=== PATIENT | female | born 1990 | race Caucasian/White ===

== ENCOUNTER 2017-06-05 07:10 | Emergency (ER) | payer OTHER ==
[~2017-06-05] VITALS: Ht 157.5 cm; Wt 62.6 kg
[~2017-06-05 07:10] MED LIST: DCL/500 PO
[2017-06-05 07:13] VITALS: TEMP 36.5; Ht 157.5 cm; Wt 62.6 kg
[2017-06-05] MEDS ORDERED: CEFTRIAXONE SOD INJ 1 GM ADDVIAL IV STA (07:38)
[2017-06-05 08:04] LABS: BASO % 0.2 %; BASO ABS # 0.02 K/uL (0-0.2); COMPLETE YES; EOS % 2.4 %; HEMATOCRIT 37.5 % (37-47); IG% 0.1 %; LYMPH % 10.1 %; LYMPH ABS # 0.86 K/uL (1.2-3.4); MEAN CORPUSCULAR HEMOGLOBIN 30.3 pg (25-34); MEAN CORPUSCULAR HGB CONC 33.3 g/dl (32-36); MEAN PLATELET VOLUME 8.1 fL (7.4-10.4); MONO % 7.4 %; NEUT % 79.8 %; PLATELET COUNT 256 K/uL (130-400); RED BLOOD COUNT 4.12 M/uL (4.2-5.4)
[2017-06-05 08:11] LABS: BUN/CREATININE RATIO 15.1 (10-20); CREATININE 0.7 mg/dl (0.60-1.20); POTASSIUM 3.9 mmol/L (3.5-5.1)
[2017-06-05 09:05] VITALS: BP 106/78; PULSE 109; O2SAT 100
--- NOTE | 2017-06-05 09:05 | EMERGENCY ROOM VISIT NOTE ---
History First contact with patient: 07:18 Chief Complaint: FEVER Stated Complaint: HIGH FEVER AFTER MASTITIS DIAGNOSIS History of Present Illness The patient is a 27 year old female who presents to the Emergency Room with complaints of left mastitis, worsening pain, swelling and fever. The patient reports that she developed breast discomfort yesterday morning. She was seen yesterday at her [facility] office and provided a prescription for dicloxacillin 500 mg 4 times a day. The patient has taken 3 doses, and has not noticed any difference in the appearance or redness of her inferior breast region. The patient checked a forehead temperature this morning which was 103F. She has not taken any ibuprofen or Tylenol for her fever or pain, and rates her discomfort a 2 out of 10. The patient reports that she did have a previous history of mastitis in March. Review of Systems HEENT: Denies dizziness, visual problems, hearing loss, tinnitus. Denies difficulty swallowing or oral lesions. PULMONARY: Denies cough, shortness of breath, sputum production or hemoptysis. CARDIOVASCULAR: Denies chest pain, palpitations, dyspnea on exertion, orthopnea or peripheral edema. GASTROINTESTINAL: Denies diarrhea, constipation, nausea, vomiting, or abdominal pain. GENITOURINARY: Denies dysuria, frequency, urgency or nocturia. NEUROLOGIC: Denies history of epilepsy, CVA, TIA or chronic headaches. MUSCULOSKELETAL: Denies history of joint tenderness/swelling. SKIN: Denies rashes or lesions. PSYCHIATRIC: Denies history of depression or mental illness. ENDOCRINE: Denies history of diabetes or thyroid disorders. Past Medical/Surgical History Medical Problems: (1) Migraines Surgical Problems: (1) History of wisdom tooth extraction Family History FH: hypertension Social History Smoking Status: Never Smoker Alcohol Use: occasionally Marital Status: Housing Status: lives with family Occupation Status: employed Current/Historical Medications Scheduled Dicloxacillin Sodium (Dynapen), 1 CAP PO QID Physical Exam Vital Signs Date Time Temp Pulse Resp B/P (MAP) Pulse Ox O2 Delivery O2 Flow Rate FiO2 06/05/17 07:13 36.5 140 18 122/80 96 Room Air Physical Exam CONSTITUTIONAL: Healthy and well nourished. Alert and oriented X 3 with positive affect. Patient does not appear acutely ill or toxic. HEENT: Normocephalic, atraumatic. Pupils equal, round and reactive. NECK: Full active range of motion without discomfort. BREAST: With a female nurse bottoming room supervisor present, examination of the left breast shows erythema and induration of the inferior quadrant. There is no erythema or induration of the nipple or areola. No nipple drainage noted. RESPIRATORY: Clear to auscultation bilaterally with no wheezing, crackles, rhonchi or stridor. CARDIOVASCULAR: Mildly tachycardic with no murmurs, rubs or gallops. GASTROINTESTINAL: Bowel sounds present in all quadrants. Soft and nontender to palpation. MUSCULOSKELETAL: Full range of motion of all joints without discomfort. INTEGUMENTARY: No rash or other significant dermatologic conditions noted. NEUROLOGIC: No focal neurologic deficits noted. Medical Decision & Procedures Laboratory Results 06/05/17 07:40 Red Blood Count 4.12, Mean Corpuscular Volume 91.0, Mean Corpuscular Hemoglobin 30.3, Mean Corpuscular Hemoglobin Concent 33.3, Mean Platelet Volume 8.1, Neutrophils (%) (Auto) 79.8, Lymphocytes (%) (Auto) 10.1, Monocytes (%) (Auto) 7.4, Eosinophils (%) (Auto) 2.4, Basophils (%) (Auto) 0.2, Neutrophils # (Auto) 6.78, Lymphocytes # (Auto) 0.86, Monocytes # (Auto) 0.63, Eosinophils # (Auto) 0.20, Basophils # (Auto) 0.02 06/05/17 07:40 Test 06/05/17 07:40 White Blood Count 8.50 K/uL (4.8-10.8) Red Blood Count 4.12 M/uL (4.2-5.4) Hemoglobin 12.5 g/dL (12.0-16.0) Hematocrit 37.5 % (37-47) Mean Corpuscular Volume 91.0 fL (80-100) Mean Corpuscular Hemoglobin 30.3 pg (25-34) Mean Corpuscular Hemoglobin Concent 33.3 g/dl (32-36) Platelet Count 256 K/uL (130-400) Mean Platelet Volume 8.1 fL (7.4-10.4) Neutrophils (%) (Auto) 79.8 % Lymphocytes (%) (Auto) 10.1 % Monocytes (%) (Auto) 7.4 % Eosinophils (%) (Auto) 2.4 % Basophils (%) (Auto) 0.2 % Neutrophils # (Auto) 6.78 K/uL (1.4-6.5) Lymphocytes # (Auto) 0.86 K/uL (1.2-3.4) Monocytes # (Auto) 0.63 K/uL (0.11-0.59) Eosinophils # (Auto) 0.20 K/uL (0-0.5) Basophils # (Auto) 0.02 K/uL (0-0.2) RDW Standard Deviation 43.2 fL (36.4-46.3) RDW Coefficient of Variation 13.1 % (11.5-14.5) Immature Granulocyte % (Auto) 0.1 % Immature Granulocyte # (Auto) 0.01 K/uL (0.00-0.02) Erythrocyte Sedimentation Rate 27 mm/hr (0-21) Anion Gap 6.0 mmol/L (3-11) Est Creatinine Clear Calc Drug Dose 106.0 ml/min Estimated GFR () 138.6 Estimated GFR (Non- 119.6 BUN/Creatinine Ratio 15.1 (10-20) Calcium Level 9.0 mg/dl (8.5-10.1) The above labs were reviewed and were grossly normal. Medications Administered Medications (Trade) Dose Ordered Sig/Maeve Route Start Time Stop Time Status Last Admin Dose Admin Ceftriaxone Sodium (Rocephin Inj) 1 gm NOW STAT IV 06/05/17 07:38 06/05/17 07:40 DC 06/05/17 08:05 1 GM ED Course Patient history and physical exam were performed. Nurse's notes were reviewed. Vital signs were reviewed, showing the patient is currently afebrile at 36.5 C. She is tachycardic at 140 bpm. I did recheck the patient after exam, showing a pulse of 100 full beats per minute. She is normotensive. Breast exam is concerning for mastitis/cellulitis of the left inferior breast region. I did suggest IV antibiotics, and the patient was in agreement. IV access was established, and labs were drawn. Review of labs did not show any leukocytosis or electrolyte abnormalities. The patient was administered Rocephin 1 g IV infusion. She refused any analgesics or antiemetics. The patient was encouraged to continue with her dicloxacillin antibiotic treatment, returning to the emergency department for any progressively worsening redness, swelling, pain or fever. She was encouraged to follow-up with her [facility] practice on Wednesday or Wednesday for recheck. The patient was happy with plan of care, voice understanding of all discharge instructions, and denied any significant discomfort at the time of discharge. Medical Decision Medication Reconcilliation Current Medication List: was personally reviewed by me Blood Pressure Screening Patient's blood pressure: Normal blood pressure Impression Primary Impression: Acute mastitis of left breast Departure Information Referrals [facility] (PCP) Patient Instructions [facility]
== END 2017-06-05 09:07 | disposition home or self-care (01) ==
LOC: C.EDB 07:11
DX: N61.0 Mastitis without abscess (principal); Z98.818 Other dental procedure status; Z82.49 Family history of ischemic heart disease and other diseases of the circulatory system

== ENCOUNTER → 2017-08-25 | Outpatient (CLI) | payer OTHER | END | disposition home or self-care (01) | LOC: C.LABSPEC 17:58 | PROVIDERS: ATTEND Physician Assistant | DX: L29.8 Other pruritus (principal) ==

== ENCOUNTER → 2017-10-11 | Outpatient (CLI) | payer OTHER | END | disposition home or self-care (01) | LOC: C.PAPS 16:37 | PROVIDERS: ATTEND Physician Assistant | DX: Z01.419 Encounter for gynecological examination (general) (routine) without abnormal findings (principal) ==